=== PATIENT | female | born 1990 | race Two or more races ===

== ENCOUNTER → 2018-05-19 | Outpatient (CLI) | payer SELFPAY ==
--- NOTE | 2018-05-19 09:48 | RADIOLOGY IMAGING REPORT ---
FACILITY: [facility] [place] PATIENT NAME: Ivy Sanchez : 1990 MR: [id number] V: [id number] EXAM DATE: ORDERING PHYSICIAN: LETI TIMMONS TECHNOLOGIST: Location: [facility] Patient: Ivy Sanchez : 1990 Visit/Account:[id number] Date of Sevice: 05/19/2018 EXAMINATION: ABDOMEN COMPLETE HISTORY: Abdominal pain and tenderness COMPARISON: None FINDINGS: Pancreas: Normal Liver: Liver is normal size with smooth margins and homogeneous intermediate echogenicity, with the exception of a 6 mm calcified granuloma in the subcapsular left lobe. Normal directional blood flow i n the main portal vein by duplex Doppler ultrasound. Bile ducts: Intrahepatic and extrahepatic bile ducts are normal caliber. Common bile duct measures 3 mm diameter in the fadi hepatis. Gallbladder: Gallbladder is normal size and wall thickness. Gallbladder contains no stones or sludge . Kidneys: Both kidneys are normal size with preserved parenchymal thickness and appropriate echogenic ity. Both kidneys measure 9 cm length, respectively. No hydronephrosis. Spleen: Spleen size is normal Abdominal aorta and IVC: Abdominal aorta and IVC are normal caliber. Both are patent. Ascites: None IMPRESSION: No ultrasound finding to explain abdominal pain. Report Dictated By: Carissa Holland MD at 05/19/2018 9:33 AM Report E-Signed By: Carissa Holland MD at 05/19/2018 9:44 AM WSN:[id number]
== END ==
LOC: US 04:54
PROVIDERS: ATTEND Physician Assistant
DX: K75.3 Granulomatous hepatitis, not elsewhere classified (principal)
CPT/HCPCS: 76700

== ENCOUNTER 2019-01-15 00:34 | Day surgery (SDC) | payer OTHER ==
[2019-01-15] VITALS (7 sets, daily range): BP systolic 84–121; BP diastolic 43–78
[~2019-01-15] VITALS: Ht 152.4 cm; Wt 43.5 kg
[2019-01-15] MEDS ORDERED: KETAMINE HCL-NS 50 MG/5 ML SYR ONE (07:00)
[2019-01-15] MEDS ORDERED: LIDOCAINE MPF 1% 5 ML VIAL ONE (07:29)
[2019-01-15] MEDS ORDERED: PROPOFOL EMUL(*) 10MG/ML 20 ML 40 ML ONE (07:29)
[2019-01-15] MEDS ORDERED: LIDOCAINE/SOD BICARB 8.4% SYR ID ONE (08:30)
[2019-01-15] MEDS ORDERED: NORMOSOL R SOLN(*) 1000 ML BAG 1,000 ML IV PRN (08:30)
--- NOTE | 2019-01-15 09:57 | Short(Outpt) Discharge Summary ---
Discharge Summary Reason for Hosp/Final Diag: (1) Anemia Status: Chronic Hospital Course & Plan: EGD with biopsies and colonoscopy with biopsies completed without problems. Both looked unremarkable. Departure Discharge to: Home, Self Care Discharge Instructions Home Meds No Active Prescriptions or Reported Meds Diet: Regular Activity: As Tolerated Special Instructions: Your upper endoscopy and colonoscopy were both completed without any problems and your prep was excellent (Good Job!!). I didn't find any inflammation, ulcers, polyps, masses, or cancer. They were normal. I did biopsy your stomach, duodenum, terminal ileum, and colon to look for microscopic abnormalities that can lead to anemia. My office will call you in the next day or two to schedule a follow up appointment with me so I can discuss these results, including the pathology results, with you. Problem Qualifiers (1) Anemia: Anemia type: iron deficiency Iron deficiency anemia type: unspecified iron deficiency Qualified Codes: D50.9 - Iron deficiency anemia, unspecified ARTHUR GRAJEDA MD Jan 15, 2019 09:57
== END 2019-01-15 11:30 | disposition home or self-care (01) ==
LOC: OR 00:34
PROVIDERS: ATTEND Surgery
DX: D50.9 Iron deficiency anemia, unspecified (principal)
CPT/HCPCS: 00813; 43239; 45380; 81025; 87077; 88305; 88342; J2001; J2704; J3490

== ENCOUNTER 2019-01-19 14:47 | Outpatient (RCR) | payer OTHER ==
[2018-11-30 15:32] VITALS: BP 100/63
--- NOTE | 2018-11-30 23:27 | ONCOLOGY CONSULTATION ---
EVENT DATE: November 30, 2018 REFERRING PHYSICIAN [employer] [facility] REASON FOR CONSULTATION Evaluation and management of iron deficiency with thrombocytosis. HEMATOLOGY HISTORY Patient is a 28-year-old student at the [employer]. She is originally from [facility]. Patient was documented to have high white count and platelet count noted in May 2018. She was also found to have normochromic, normocytic iron deficiency anemia. She used to use iron pills, but she was stopping it because of gastrointestinal side effects. Her iron studies show low serum iron at 17, TIBC 315, iron saturation 5%, and ferritin was 33.9, but it was 12 in August 2018. Her CBC before showed hemoglobin 10.7, hematocrit 34%, and platelet count was 657,000, which dropped to 526,000 after that. MCV was normal at 84.5. PAST MEDICAL HISTORY Iron deficiency anemia. PAST SURGICAL HISTORY Patient had a rash over her legs, and she had a biopsy last week. FAMILY HISTORY Negative for cancer or blood diseases. SOCIAL HISTORY Patient is single with no children. She is a student at the [employer]. She drinks rarely. Denies any abuse of tobacco or illicit drugs. CURRENT MEDICATIONS She is using only ointment for her skin rash. ALLERGIES CEPHALEXIN and CETIRIZINE which makes the rash worse. REVIEW OF SYSTEMS CONSTITUTIONAL: No appetite or weight change. No fever, chills, or sweating. No recent infection. HEENT: Ears: No tinnitus or hearing problem. Nose: No nasal discharge or epistaxis. Throat: No sore throat or mouth ulcers. Eyes: No diplopia or visual changes. RESPIRATORY: No shortness of breath. No cough, expectoration, or hemoptysis. CARDIOVASCULAR: No chest pain, orthopnea, or paroxysmal nocturnal dyspnea (PND). No edema. No palpitations. GASTROINTESTINAL: No nausea or vomiting. No diarrhea or constipation. No change in bowel movements. No heartburn or swallowing difficulties. No abdominal pain. No jaundice. No hematemesis, melena, or rectal bleeding. GENITOURINARY: No hematuria or dysuria. She does not have heavy periods. MUSCULOSKELETAL: She has pain in both legs. NEUROLOGIC: No tingling or numbness in the hands or feet. No headaches or convulsions. HEMATOLOGIC/LYMPHATIC: No bleeding or easy bruising. No weakness or fatigue. No enlarged lymph nodes. SKIN: She has a skin rash over her legs, which was biopsied a week ago. PSYCHIATRIC: No anxiety or depression. PHYSICAL EXAMINATION GENERAL: Looks stable. Well developed, well nourished, and in no acute distress. VITAL SIGNS: Blood pressure 100/63, pulse 106 per minute, respirations 16 per minute, temperature 99.3, pulse ox 96% on room air. HEENT: Head: Atraumatic. No sinus tenderness to palpation. Eyes: No icterus or conjunctivitis. Mouth and Throat: No oral thrush or mucositis. NECK: Supple. No cervical or supraclavicular lymphadenopathy. LUNGS: Clear to auscultation and percussion bilaterally. HEART: Regular rate and rhythm. No gallops, murmurs, clicks, or rubs. ABDOMEN: Soft and lax. No tenderness. No hepatosplenomegaly. No masses. EXTREMITIES: No cyanosis, clubbing, or edema. LYMPHATICS: No peripheral lymphadenopathy. NEUROLOGIC: Conscious, alert, and oriented times three. No focal motor or sensory deficits. PSYCHIATRIC: Mood and affect appear normal. SKIN: No skin rash, bruise, or purpuric eruption. ASSESSMENT Iron deficiency anemia with normal MCV, but with high platelet count and mildly elevated white blood cell count. There is a relation between thrombocytosis and iron deficiency, and with full iron supplementation, the platelet count will normalize. It is not clear if the patient will have malabsorption of iron, especially with her skin rash, as celiac disease could be associated with severe itchy skin rash, named dermatitis herpitiformis which usually occurs on the extensor surfaces of the body like the elbows and knees, and it is very itchy. Anyway, patient had a biopsy done for that rash last week, and we are waiting for the result. It seems that the patient did not respond very well to the oral iron supplement, and at the same time also she had some gastrointestinal side effects from iron. That is why the patient was not compliant with her iron pills in the past. For this reason, I am planning to treat her with Injectafer 750 mg weekly for two weeks, and I will see her in two months after that with CBC and iron studies with ferritin to see if the platelet count will normalize, if the iron corrects, and if the hemoglobin also corrects. Given that the patient does not have any heavy periods, I am planning to refer her to Dr. Edith for gastrointestinal workup also. PLAN 1. CBC and iron studies with ferritin. 2. Referral to Dr. Sharma for GI workup. 3. Dual antibodies for celiac disease. 4. Injectafer 750 mg intravenous infusion weekly for two weeks. 5. Patient to return in two months with CBC and iron studies with ferritin. 6. Patient to contact us for any new concerns or complaints. MTDD
[2018-12-12 14:25] VITALS: BP 106/69
[2018-12-12 15:20] VITALS: BP 117/77
[2019-01-16 08:58] VITALS: BP_SYST 67
[2019-01-16 09:06] LABS: PLATELET COUNT, AUTOMATED 275 K/uL (150-450)
[~2019-01-19 14:47] MED LIST: DEXTROSE 5%(*) 100 ML BAG 100 ML IVPB PRN; FERRIC CARBOXY 750 MG SDV 750 MG in NS(*) 0.9% 250 ML BAG 250 ML IVPB ONE; LIDOCAINE/SOD BICARB 8.4% SYR ID PRN; NS(*) 0.9% 100 ML BAG 100 ML IVPB PRN
[2019-01-19 14:53] VITALS: BP 106/67
--- NOTE | 2019-01-19 22:46 | ONCOLOGY FOLLOW UP NOTE ---
EVENT DATE: January 19, 2019 DIAGNOSIS Iron deficiency anemia. CHIEF COMPLAINT Patient is here today for followup of her iron deficiency anemia with thrombocytosis. HEMATOLOGY HISTORY Patient is a 28-year-old student at the [employer]. She is originally from [facility]. Patient was documented to have high white count and platelet count noted in May 2018. She was also found to have normochromic, normocytic iron deficiency anemia. She used to use iron pills, but she was stopping it because of gastrointestinal side effects. Her iron studies show low serum iron at 17, TIBC 315, iron saturation 5%, and ferritin was 33.9, but it was 12 in August 2018. Her CBC before showed hemoglobin 10.7, hematocrit 34%, and platelet count was 657,000, which dropped to 526,000 after that. MCV was normal at 84.5. HISTORY OF PRESENT ILLNESS Patient is here today for followup of her iron deficiency with thrombocytosis. She is doing fine currently. She has nasal discharge. She has some headache, but other than that, she is doing very well. 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 PAST MEDICAL HISTORY Iron deficiency anemia. PAST SURGICAL HISTORY Patient had a rash over her legs, and she had a biopsy last week. FAMILY HISTORY Negative for cancer or blood diseases. SOCIAL HISTORY Patient is single with no children. She is a student at the [employer]. She drinks rarely. Denies any abuse of tobacco or illicit drugs. CURRENT MEDICATIONS She is using only ointment for her skin rash. ALLERGIES CEPHALEXIN and CETIRIZINE which makes the rash worse. REVIEW OF SYSTEMS CONSTITUTIONAL: No appetite or weight change. No fever, chills, or sweating. No recent infection. HEENT: Ears: No tinnitus or hearing problem. Nose: She has nasal discharge. No epistaxis. Throat: No sore throat or mouth ulcers. Eyes: No diplopia or visual changes. RESPIRATORY: No shortness of breath. No cough, expectoration, or hemoptysis. CARDIOVASCULAR: No chest pain, orthopnea, or paroxysmal nocturnal dyspnea (PND). No edema. No palpitations. GASTROINTESTINAL: No nausea or vomiting. No diarrhea or constipation. No change in bowel movements. No heartburn or swallowing difficulties. No abdominal pain. No jaundice. No hematemesis, melena, or rectal bleeding. GENITOURINARY: No hematuria or dysuria. MUSCULOSKELETAL: No pain in the muscles, joints, or bones. NEUROLOGIC: No tingling or numbness in the hands or feet. She has occasional headache. No convulsions. HEMATOLOGIC/LYMPHATIC: No bleeding or easy bruising. No weakness or fatigue. No enlarged lymph nodes. SKIN: No skin rash or lumps. PSYCHIATRIC: No anxiety or depression. PHYSICAL EXAMINATION GENERAL: Looks stable. Well developed, well nourished, and in no acute distress. VITAL SIGNS: Blood pressure 106/67, pulse 85 per minute, respirations 16 per minute, temperature 98.5, pulse ox 96% on room air. HEENT: Head: Atraumatic. No sinus tenderness to palpation. Eyes: No icterus or conjunctivitis. Mouth and Throat: No oral thrush or mucositis. NECK: Supple. No cervical or supraclavicular lymphadenopathy. LUNGS: Clear to auscultation and percussion bilaterally. HEART: Regular rate and rhythm. No gallops, murmurs, clicks, or rubs. ABDOMEN: Soft and lax. No tenderness. No hepatosplenomegaly. No masses. EXTREMITIES: No cyanosis, clubbing, or edema. LYMPHATICS: No peripheral lymphadenopathy. NEUROLOGIC: Conscious, alert, and oriented times three. No focal motor or sensory deficits. PSYCHIATRIC: Mood and affect appear normal. SKIN: No skin rash, bruise, or purpuric eruption. DIAGNOSTIC DATA CBC showed white count 8.3, hemoglobin 13.4, hematocrit 40.4, platelets 275,000. Serum iron is 100, TIBC 245, iron saturation 40.7%, and ferritin is 237. ASSESSMENT Iron deficiency anemia with normal MCV, but with high platelet count and mildly elevated white blood cell count. Patient's skin rash biopsy as per patient turned out to be a vasculitis. She has been seen by Dr. Sharma, and the results of the biopsies from esophagogastroduodenoscopy and colonoscopy are still pending. She received Injectafer infusion 750 mg weekly for two weeks, and she has correction of her blood counts and also iron studies. Her current ferritin is 237. Her hemoglobin is 13.4, white count normal at 8.3, and platelet count normal at 275,000. I am planning to let the patient continue followup by the [employer] [facility] [employer] [facility] every six months with CBC and iron studies with ferritin, and if the patient would develop iron deficiency in the future, I will be more than happy to see her at that time to resume her Injectafer therapy. PLAN 1. Continue followup by the [employer] [facility] [employer] [facility]. 2. Check CBC and iron studies with ferritin every six months. 3. If the patient would have iron deficiency in the future, I will be more than happy to see the patient again to treat her again with Injectafer infusions. 4. Patient to contact us for any new concerns or complaints. DARIUS
== END 2019-01-24 12:09 | disposition home or self-care (01) ==
LOC: ONC 14:47
PROVIDERS: ATTEND Internal Medicine Hematology
DX: D50.9 Iron deficiency anemia, unspecified (principal); D47.3 Essential (hemorrhagic) thrombocythemia
CPT/HCPCS: 36415; 82728; 83540; 83550; 85025; 99212; J1439; J7050; 96365